=== PATIENT | male | born 1960 | race Caucasian/White ===

== ENCOUNTER → 2018-04-07 | Outpatient (CLI) | payer OTHER ==
[~2018-04-07] MED LIST: LOSA50TA6 PO; RIVA10TA PO
== END | disposition home or self-care (01) ==
LOC: RAD 17:33
PROVIDERS: ATTEND Family Medicine
DX: I82.411 Acute embolism and thrombosis of right femoral vein (principal); I82.431 Acute embolism and thrombosis of right popliteal vein; I82.441 Acute embolism and thrombosis of right tibial vein; I10 Essential (primary) hypertension

== ENCOUNTER 2018-04-26 18:08 | Emergency (ER) | payer OTHER ==
[~2018-04-26] VITALS: Ht 188 cm; Wt 102.8 kg
[2018-04-26 19:36] LABS: BASOPHILS # (AUTO) 0.08 x10^3/uL (0-0.1); BASOPHILS % (AUTO) 1 % (0-1); EOSINOPHILS # (AUTO) 0.21 x10^3/uL (0-0.4); EOSINOPHILS % (AUTO) 2 % (1-7); LYMPHOCYTES # (AUTO) 1.99 x10^3/uL (1-3.4); LYMPHOCYTES % (AUTO) 21 % (22-44); MD NO; MEAN CORPUSCULAR HEMOGLOBIN 31.2 pg (27.5-34.5); MEAN CORPUSCULAR HGB CONC 34.3 g/dL (33.2-36.2); MEAN CORPUSCULAR VOLUME 91.1 fL (81-97); MEAN PLATELET VOLUME 6.8 fL (7.4-10.4); MONOCYTES # (AUTO) 0.77 x10^3/uL (0.2-0.8); MONOCYTES % (AUTO) 8 % (2-9); NEUTROPHILS # (AUTO) 6.45 x10^3/uL (1.8-6.8); NEUTROPHILS % (AUTO) 68 % (42-75); PLATELET COUNT 243 x10^3/uL (130-400); RED BLOOD COUNT 4.71 x10^6/uL (4.38-5.82); RED CELL DISTRIBUTION WIDTH 13.5 % (9.4-14.8)
[2018-04-26 19:41] LABS: INTERNATIONAL NORMALIZED RATIO 1.01 (0.93-1.1); PROTHROMBIN TIME 10.5 Seconds (9.6-11.5)
[2018-04-26 19:44] LABS: ALBUMIN 3.4 g/dL (3.4-5.0); ANION GAP 6 mmol/L (5-15); CALCIUM 8.6 mg/dL (8.5-10.1); CHLORIDE 106 mmol/L (98-107); CREATININE 1.11 mg/dL (0.7-1.3)
[2018-04-26 19:47] LABS: TROPONIN I < 0.015 ng/mL (0.000-0.045)
[2018-04-26] MEDS ORDERED: LOSA50TA6 PO (19:52)
[2018-04-26] MEDS ORDERED: RIVA10TA PO (19:52)
[2018-04-26 20:24] VITALS: BP 124/88
== END 2018-04-26 21:10 | disposition home or self-care (01) ==
LOC: ED 20:45
DX: I82.401 Acute embolism and thrombosis of unspecified deep veins of right lower extremity (principal); I26.99 Other pulmonary embolism without acute cor pulmonale; I10 Essential (primary) hypertension
CPT/HCPCS: 36415; 80048; 82040; 83880; 84484; 85025; 85610; 85730; 93005; 99285

== ENCOUNTER → 2018-04-26 | Outpatient (CLI) | payer OTHER ==
[~2018-04-26] MED LIST changes: +OMNIPAQUE 350 MG/ML, 100ML BOTTLE ONE
[2018-04-26 16:11] LABS: CREATININE 1.11 mg/dL (0.7-1.3)
== END | disposition home or self-care (01) ==
LOC: RAD 15:18
PROVIDERS: ATTEND Family Medicine
DX: I26.99 Other pulmonary embolism without acute cor pulmonale (principal); R06.02 Shortness of breath
CPT/HCPCS: 36415; 71275; 82565; Q9967

== ENCOUNTER 2018-11-21 07:12 | Inpatient (IN) | payer OTHER ==
[~2018-11-21] VITALS: Ht 188 cm; Wt 111.8 kg
[~2018-11-21 07:12] MED LIST changes: +LOSA50TA14 PO; -LOSA50TA6 PO; -OMNIPAQUE 350 MG/ML, 100ML BOTTLE ONE; -RIVA10TA PO; +RIVA10TA2 PO
--- NOTE | 2018-11-21 07:22 | NUR ---
PT BIB EMS. FALL R/T ICE. PT DENIES ANY SOB, DUIZZINESS, CHEST PAIN. DENIES LIOC OR MIDLINE SPINE PAIN. DENIES HEAD TRAUMA. LEFT LEG SHORTENED AND EXTERNALLY ROTATED. NEROVASCULAR INTACT DISTYAL. RESTING ON GURNEY. CALL LIGHT IN REACH. SPO2 AND NIBP MONITORS IN PLACE.
[2018-11-21] MEDS ORDERED: SODIUM CHLORIDE FLUSH 10ML SYR IVF ONE (07:30)
[2018-11-21] MEDS ORDERED: MORPHINE SULFATE 4 MG/ML, 1ML ONE ×2 (07:50→08:14)
[2018-11-21] MEDS: MORPHINE SULFATE 4 MG/ML, 1ML IVPush PRN ×2 (07:52→08:17)
[2018-11-21 07:57] LABS: BASOPHILS # (AUTO) 0.05 x10^3/uL (0-0.1); BASOPHILS % (AUTO) 1 % (0-1); EOSINOPHILS # (AUTO) 0.31 x10^3/uL (0-0.4); EOSINOPHILS % (AUTO) 5 % (1-7); LYMPHOCYTES # (AUTO) 1.69 x10^3/uL (1-3.4); LYMPHOCYTES % (AUTO) 27 % (22-44); MD NO; MEAN CORPUSCULAR HEMOGLOBIN 32.1 pg (27.5-34.5); MEAN CORPUSCULAR HGB CONC 34.3 g/dL (33.2-36.2); MEAN CORPUSCULAR VOLUME 93.8 fL (81-97); MEAN PLATELET VOLUME 6.6 fL (7.4-10.4); MONOCYTES # (AUTO) 0.53 x10^3/uL (0.2-0.8); MONOCYTES % (AUTO) 9 % (2-9); NEUTROPHILS # (AUTO) 3.69 x10^3/uL (1.8-6.8); NEUTROPHILS % (AUTO) 59 % (42-75); PLATELET COUNT 180 x10^3/uL (130-400); RED BLOOD COUNT 4.64 x10^6/uL (4.38-5.82); RED CELL DISTRIBUTION WIDTH 12.3 % (9.4-14.8)
[2018-11-21 08:05] LABS: ALANINE AMINOTRANSFERASE 21 U/L (12-78); ALBUMIN 3.3 g/dL (3.4-5.0); ANION GAP 7 mmol/L (5-15); CALCIUM 8.3 mg/dL (8.5-10.1); CHLORIDE 110 mmol/L (98-107); CREATININE 1.26 mg/dL (0.7-1.3)
[2018-11-21 08:07] LABS: ALKALINE PHOSPHATASE 65 U/L (45-117); BILIRUBIN,TOTAL 0.6 mg/dL (0.2-1.0); TOTAL PROTEIN 6.7 g/dL (6.4-8.2)
[2018-11-21 08:20] VITALS: BP 148/96
[2018-11-21 08:27] LABS: INTERNATIONAL NORMALIZED RATIO 0.99 (0.93-1.1); PROTHROMBIN TIME 10.5 Seconds (9.6-11.5)
--- NOTE | 2018-11-21 08:39 | NUR ---
REPORT TO DOUGLAS VICTOR
[2018-11-21] MEDS: LOSARTAN 50MG TABLET PO SCH (09:00)
[2018-11-21] MEDS ORDERED: morphine SULFATE 10 MG/ML, 1ML IVPush PRN (09:00)
[2018-11-21] MEDS ORDERED: ENALAPRILAT 1.25 MG/ML, 2ML IVPush PRN (09:00)
[2018-11-21] MEDS ORDERED: BISACODYL 10 MG SUPP PR PRN (09:00)
[2018-11-21] MEDS ORDERED: ONDANSETRON 2MG/ML, 2ML IVPush PRN (09:00)
[2018-11-21] MEDS: NS + 20MEQ KCL 1,000 ML IV SCH ×2 (09:56→23:11)
[2018-11-21] MEDS ORDERED: MIDAZOLAM 1 MG/ML, 2ML ONE (11:40)
[2018-11-21] MEDS ORDERED: FENTANYL PF 250 MCG/5ML ONE (11:40)
[2018-11-21] MEDS ORDERED: PROPOFOL 10 MG/ML, 20ML ONE (11:41)
[2018-11-21] MEDS ORDERED: ROCURONIUM 10MG/ML,5ML ONE (11:41)
[2018-11-21] MEDS ORDERED: LIDOCAINE-MPF 2% ,5ML ONE (11:41)
[2018-11-21] MEDS ORDERED: PHENYLEPHRINE 10 MG/ML ONE (11:42)
[2018-11-21] MEDS ORDERED: WATER-INJECTION,STERILE 10 ML IV ONE (11:43)
[2018-11-21] MEDS ORDERED: CEFAZOLIN 1,000 MG ONE ×2 (11:43)
[2018-11-21] MEDS ORDERED: DEXAMETHASONE 4 MG/ML, 1ML ONE ×2 (11:58)
[2018-11-21] MEDS ORDERED: ONDANSETRON 2MG/ML, 2ML ONE ×2 (11:58)
[2018-11-21] MEDS ORDERED: NEOSPORIN OINT, 15GM ONE (12:45)
[2018-11-21] MEDS ORDERED: FENTANYL PF 100 MCG/2ML ONE (12:49)
[2018-11-21] MEDS ORDERED: ACETAMINOPHEN 325 MG TABLET PO PRN (13:00)
[2018-11-21] MEDS ORDERED: PROMETHAZINE 25 MG/ML, 1ML IV PRN (13:00)
[2018-11-21] MEDS ORDERED: MEPERIDINE/PF 25MG/0.5ML IVPush PRN (13:00)
[2018-11-21] MEDS ORDERED: hydrALAzine 20 MG/ML, 1ML IV PRN (13:00)
[2018-11-21] MEDS ORDERED: FENTANYL PF 100 MCG/2ML IV PRN (13:00)
[2018-11-21] MEDS ORDERED: HALOPERIDOL 5 MG/ML IV PRN (13:00)
[2018-11-21] MEDS ORDERED: GLYCOPYRROLATE 0.2MG/1ML, 5ML ONE (13:07)
[2018-11-21] MEDS ORDERED: NEOSTIGMINE 1 MG/ML, 10ML ONE (13:07)
[2018-11-21] MEDS: CEFAZOLIN PMX 1GM/50ML 50 ML IV SCH ×2 (13:30→22:39)
[2018-11-21] MEDS: ENOXAPARIN 40 MG/0.4 ML SQ SCH ×2 (13:30→22:39)
[2018-11-21] MEDS ORDERED: HYDROmorphone 1 MG/ML, 1ML ONE (13:32)
[2018-11-21] MEDS ORDERED: OXYcodone 5 MG/5 ML ORAL.SOL UDC ONE (13:33)
[2018-11-21] MEDS: OXYcodone 5 MG/5 ML ORAL.SOL UDC PO PRN ×2 (13:35→16:48)
[2018-11-21] MEDS: HYDROmorphone 2 MG/ML, 1ML IVPush PRN ×2 (13:36→13:45)
[2018-11-21] MEDS ORDERED: KETOROLAC 30 MG/1 ML ONE (13:37)
[2018-11-21] MEDS ORDERED: KETOROLAC 30 MG/1 ML IVPush ONE (14:00)
[2018-11-21] MEDS ORDERED: MEPERIDINE/PF 25MG/ML,1ML ONE (14:00)
[2018-11-21 14:25] VITALS: BP 119/68
[2018-11-21 18:41] VITALS: BP 99/64
[2018-11-22 00:02] VITALS: BP 107/62
[2018-11-22 05:21] LABS: ANION GAP 5 mmol/L (5-15); CALCIUM 7.3 mg/dL (8.5-10.1); CHLORIDE 106 mmol/L (98-107); CREATININE 1.26 mg/dL (0.7-1.3)
[2018-11-22 05:25] LABS: BASOPHILS # (AUTO) 0.02 x10^3/uL (0-0.1); BASOPHILS % (AUTO) 0 % (0-1); EOSINOPHILS % (AUTO) 0 % (1-7); LYMPHOCYTES # (AUTO) 0.89 x10^3/uL (1-3.4); LYMPHOCYTES % (AUTO) 9 % (22-44); MD NO; MEAN CORPUSCULAR HGB CONC 34.9 g/dL (33.2-36.2); MEAN CORPUSCULAR VOLUME 94.5 fL (81-97); MEAN PLATELET VOLUME 6.9 fL (7.4-10.4); MONOCYTES # (AUTO) 0.81 x10^3/uL (0.2-0.8); MONOCYTES % (AUTO) 9 % (2-9); NEUTROPHILS # (AUTO) 7.69 x10^3/uL (1.8-6.8); NEUTROPHILS % (AUTO) 82 % (42-75); PLATELET COUNT 159 x10^3/uL (130-400); RED BLOOD COUNT 3.25 x10^6/uL (4.38-5.82); RED CELL DISTRIBUTION WIDTH 12.2 % (9.4-14.8)
[2018-11-22] MEDS: CEFAZOLIN PMX 1GM/50ML 50 ML IV SCH (06:31)
[2018-11-22 07:40] VITALS: BP 105/68
[2018-11-22] MEDS: LOSARTAN 50MG TABLET PO SCH (09:00)
[2018-11-22] MEDS: OXYcodone IR 5MG TABLET PO PRN ×3 (09:14→21:04)
[2018-11-22] MEDS: NS + 20MEQ KCL 1,000 ML IV SCH ×2 (10:39→14:37)
[2018-11-22 13:23] VITALS: BP 110/65
[2018-11-22 18:46] VITALS: BP 115/62
[2018-11-22] MEDS: DOCUSATE 100 MG CAPSULE PO PRN (21:04)
[2018-11-22] MEDS: ACETAMINOPHEN 325 MG TABLET PO PRN (21:04)
[2018-11-23] MEDS: ACETAMINOPHEN 325 MG TABLET PO PRN ×4 (01:04→20:06)
[2018-11-23] MEDS: OXYcodone IR 5MG TABLET PO PRN ×4 (01:04→20:06)
[2018-11-23 01:09] VITALS: BP 117/67
[2018-11-23] MEDS: NS + 20MEQ KCL 1,000 ML IV SCH ×2 (04:46→17:32)
[2018-11-23 07:13] VITALS: BP 107/63
[2018-11-23] MEDS: LOSARTAN 50MG TABLET PO SCH (09:00)
[2018-11-23] MEDS: DOCUSATE 100 MG CAPSULE PO PRN ×2 (09:13→20:06)
[2018-11-23] MEDS: POLYETHYLENE GLYCOL 17 GM PACKET PO PRN (09:13)
[2018-11-23 13:04] VITALS: BP 131/77
[2018-11-23] MEDS: ENOXAPARIN 40 MG/0.4 ML SQ SCH (15:51)
[2018-11-23 18:32] VITALS: BP 137/94
[2018-11-23 20:27] LABS: BASOPHILS # (AUTO) 0.03 x10^3/uL (0-0.1); BASOPHILS % (AUTO) 0 % (0-1); EOSINOPHILS # (AUTO) 0.11 x10^3/uL (0-0.4); EOSINOPHILS % (AUTO) 2 % (1-7); LYMPHOCYTES # (AUTO) 1.15 x10^3/uL (1-3.4); LYMPHOCYTES % (AUTO) 18 % (22-44); MD NO; MEAN CORPUSCULAR HGB CONC 35.1 g/dL (33.2-36.2); MEAN CORPUSCULAR VOLUME 93.9 fL (81-97); MEAN PLATELET VOLUME 6.8 fL (7.4-10.4); MONOCYTES # (AUTO) 0.74 x10^3/uL (0.2-0.8); MONOCYTES % (AUTO) 11 % (2-9); NEUTROPHILS # (AUTO) 4.52 x10^3/uL (1.8-6.8); NEUTROPHILS % (AUTO) 69 % (42-75); PLATELET COUNT 134 x10^3/uL (130-400); RED BLOOD COUNT 2.63 x10^6/uL (4.38-5.82); RED CELL DISTRIBUTION WIDTH 12.4 % (9.4-14.8)
[2018-11-23 21:00] LABS: MICROSCOPIC AUTO
[2018-11-23 21:09] LABS: CULTURE INDICATED? YES
[2018-11-23] MEDS: POLYTRIM OPHTH 10ML RIGHTEYE SCH (23:27)
[2018-11-24 01:48] VITALS: BP 111/69
[2018-11-24] MEDS: NS + 20MEQ KCL 1,000 ML IV SCH ×2 (06:02→21:48)
[2018-11-24] MEDS: POLYTRIM OPHTH 10ML RIGHTEYE SCH ×4 (06:02→21:00)
[2018-11-24] MEDS: OXYcodone IR 5MG TABLET PO PRN ×5 (06:09→23:39)
[2018-11-24] MEDS: ACETAMINOPHEN 325 MG TABLET PO PRN ×3 (06:09→14:31)
[2018-11-24 06:54] VITALS: BP 117/71
[2018-11-24] MEDS: LOSARTAN 50MG TABLET PO SCH (09:00)
[2018-11-24] MEDS: DOCUSATE 100 MG CAPSULE PO PRN (09:29)
[2018-11-24] MEDS: POLYETHYLENE GLYCOL 17 GM PACKET PO PRN (09:29)
[2018-11-24] MEDS: CEFTRIAXONE PMX 2GM/50ML 50 ML IV SCH (10:08)
[2018-11-24 14:21] VITALS: BP 123/79
[2018-11-24] MEDS: ENOXAPARIN 40 MG/0.4 ML SQ SCH (15:41)
[2018-11-24] MEDS: TOBRAMYCIN OP SCH ×2 (18:09→21:50)
[2018-11-24] MEDS: DEXAMETH OP SCH ×2 (18:09→21:50)
[2018-11-24 18:40] VITALS: BP 113/75
[2018-11-25 00:07] VITALS: BP 122/68
[2018-11-25] MEDS: OXYcodone IR 5MG TABLET PO PRN ×3 (04:10→16:35)
[2018-11-25] MEDS: POLYTRIM OPHTH 10ML RIGHTEYE SCH ×3 (06:00→16:34)
[2018-11-25 07:45] VITALS: BP 117/70
[2018-11-25] MEDS: TOBRAMYCIN OP SCH ×2 (09:26→16:34)
[2018-11-25] MEDS: DEXAMETH OP SCH ×2 (09:26→16:34)
[2018-11-25] MEDS: LOSARTAN 50MG TABLET PO SCH (09:28)
[2018-11-25] MEDS: ACETAMINOPHEN 325 MG TABLET PO PRN (09:33)
[2018-11-25] MEDS: CEFTRIAXONE PMX 2GM/50ML 50 ML IV SCH (10:08)
[2018-11-25] MEDS: NS + 20MEQ KCL 1,000 ML IV SCH (10:40)
[2018-11-25] MEDS ORDERED: POLY17PO5 PO (11:47)
[2018-11-25] MEDS ORDERED: OXYC5TAB3 PO (11:47)
[2018-11-25] MEDS ORDERED: TOBR5DRO14 OP (11:47)
[2018-11-25] MEDS ORDERED: ONDA4TAB13 SL ×2 (11:47→14:01)
[2018-11-25] MEDS ORDERED: ENOX40SY4 SQ ×2 (11:48→11:58)
[2018-11-25] MEDS ORDERED: CEFD300C37 PO (11:54)
[2018-11-25] MEDS ORDERED: TRAM50TA2 PO (11:58)
[2018-11-25 12:44] VITALS: BP 117/72
[2018-11-25] MEDS: ENOXAPARIN 40 MG/0.4 ML SQ SCH (16:34)
== END 2018-11-25 18:15 | DRG 481 ==
LOC: ED 07:51 → EDIP 08:16 → 4NOR 08:53
PROVIDERS: ADMIT Hospitalist; ATTEND Hospitalist
PROC: 0QS706Z Reposition Left Upper Femur with Intramedullary Internal Fixation Device, Open Approach (ICD-10-PCS; principal; 2018-11-21 12:00)
PROC: 0T9B70Z Drainage of Bladder with Drainage Device, Via Natural or Artificial Opening (ICD-10-PCS; 2018-11-23)
DX: S72.22XA Displaced subtrochanteric fracture of left femur, initial encounter for closed fracture (principal); E44.1 Mild protein-calorie malnutrition; N39.0 Urinary tract infection, site not specified; S72.122A Displaced fracture of lesser trochanter of left femur, initial encounter for closed fracture; S72.8X2A Other fracture of left femur, initial encounter for closed fracture; W01.0XXA Fall on same level from slipping, tripping and stumbling without subsequent striking against object, initial encounter; H10.9 Unspecified conjunctivitis; I11.9 Hypertensive heart disease without heart failure; M19.90 Unspecified osteoarthritis, unspecified site; R73.9 Hyperglycemia, unspecified; Y93.89 Activity, other specified; Y99.8 Other external cause status; Z86.711 Personal history of pulmonary embolism; Z86.718 Personal history of other venous thrombosis and embolism; Z68.31 Body mass index [BMI] 31.0-31.9, adult; Y92.481 Parking lot as the place of occurrence of the external cause
CPT/HCPCS: 36415; 73501; 73502; 76000; 84145; 99285; J3490; 71045; 80048; 80053; 80307; 81001; 83605; 85014; 85018; 85025; 85610; 85730; 87040; 87086; 93005; 96374; C1713; G0378; J0690; J0696; J1100; J1170; J1650; J1885; J2175; J2250; J2405; J2704; J2710; J3010; J3480; J2270; J2370

== ENCOUNTER → 2020-04-27 | Outpatient (CLI) | payer OTHER ==
[~2020-04-27] MED LIST changes: +CEFD300C37 PO; +ENOX40SY4 SQ; +ONDA4TAB13 SL; +OXYC5TAB3 PO; +POLY17PO5 PO; +TOBR5DRO14 OP; +TRAM50TA2 PO
== END | disposition home or self-care (01) ==
LOC: STAR 08:08
PROVIDERS: ATTEND Surgery
DX: Z01.818 Encounter for other preprocedural examination (principal); K40.90 Unilateral inguinal hernia, without obstruction or gangrene, not specified as recurrent; I10 Essential (primary) hypertension
CPT/HCPCS: 71046; 93005

== ENCOUNTER 2020-05-02 06:47 | Day surgery (SDC) | payer OTHER ==
[2020-04-27 09:20] LABS: BASOPHILS # (AUTO) 0.05 x10^3/uL (0-0.1); BASOPHILS % (AUTO) 1 % (0-1); EOSINOPHILS # (AUTO) 0.28 x10^3/uL (0-0.4); EOSINOPHILS % (AUTO) 4 % (1-7); LYMPHOCYTES # (AUTO) 2.89 x10^3/uL (1-3.4); LYMPHOCYTES % (AUTO) 39 % (22-44); MD NO; MEAN CORPUSCULAR HEMOGLOBIN 30.7 pg (27.5-34.5); MEAN CORPUSCULAR HGB CONC 33.1 g/dL (33.2-36.2); MEAN CORPUSCULAR VOLUME 92.8 fL (81-97); MEAN PLATELET VOLUME 6.2 fL (7.4-10.4); MONOCYTES # (AUTO) 0.65 x10^3/uL (0.2-0.8); MONOCYTES % (AUTO) 9 % (2-9); NEUTROPHILS # (AUTO) 3.65 x10^3/uL (1.8-6.8); NEUTROPHILS % (AUTO) 49 % (42-75); PLATELET COUNT 266 x10^3/uL (130-400); RED BLOOD COUNT 4.37 x10^6/uL (4.38-5.82); RED CELL DISTRIBUTION WIDTH 12.6 % (9.4-14.8)
[2020-04-27 09:55] LABS: ALBUMIN 3.3 g/dL (3.4-5.0); CALCIUM 8.4 mg/dL (8.5-10.1)
[2020-04-27 10:05] LABS: ALANINE AMINOTRANSFERASE 26 U/L (12-78); ALKALINE PHOSPHATASE 65 U/L (45-117); ANION GAP 6 mmol/L (5-15); BILIRUBIN,TOTAL 0.4 mg/dL (0.2-1.0); CHLORIDE 108 mmol/L (98-107); CREATININE 1.09 mg/dL (0.7-1.3); TOTAL PROTEIN 7.2 g/dL (6.4-8.2)
[~2020-05-02] VITALS: Ht 188 cm; Wt 108.5 kg
[2020-05-02] MEDS ORDERED: FENTANYL PF 100 MCG/2ML ONE (07:16)
[2020-05-02] MEDS ORDERED: ROCURONIUM 10MG/ML,5ML ONE (07:16)
[2020-05-02] MEDS ORDERED: MIDAZOLAM 1 MG/ML, 2ML ONE (07:16)
[2020-05-02] MEDS ORDERED: ONDANSETRON 2MG/ML, 2ML ONE (07:18)
[2020-05-02] MEDS ORDERED: DEXAMETHASONE 4 MG/ML, 1ML ONE ×2 (07:18)
[2020-05-02] MEDS ORDERED: LIDOCAINE-MPF 2% ,5ML ONE (07:18)
[2020-05-02] MEDS ORDERED: PROPOFOL 10 MG/ML, 20ML ONE (07:18)
[2020-05-02 07:34] VITALS: BP 120/82
[2020-05-02] MEDS ORDERED: LACTATED RINGERS 1,000 ML IV SCH (07:36)
[2020-05-02] MEDS ORDERED: ACETAMINOPHEN 500 MG TABLET PO ONE (08:00)
[2020-05-02] MEDS ORDERED: GABAPENTIN 300 MG CAPSULE PO ONE (08:00)
[2020-05-02] MEDS ORDERED: CHLORHEXIDINE 15 ML UDC MM ONE (08:00)
[2020-05-02] MEDS ORDERED: BUPIVACAINE/PF 0.5% ONE (08:47)
[2020-05-02] MEDS ORDERED: DIAZEPAM 5 MG/ML, 2ML IVPush PRN (09:00)
[2020-05-02] MEDS ORDERED: MEPERIDINE/PF 25MG/0.5ML IVPush PRN (09:00)
[2020-05-02] MEDS ORDERED: FENTANYL PF 100 MCG/2ML IV PRN (09:00)
[2020-05-02] MEDS ORDERED: HYDROmorphone 1 MG/ML, 1ML INJ IVPush PRN (09:00)
[2020-05-02] MEDS ORDERED: ONDANSETRON 2MG/ML, 2ML IVPush PRN (09:00)
[2020-05-02] MEDS ORDERED: PROMETHAZINE 25 MG/ML, 1ML IVPush PRN (09:00)
[2020-05-02] MEDS ORDERED: hydrALAzine 20 MG/ML, 1ML IV PRN (09:00)
[2020-05-02] MEDS ORDERED: OXYcodone 5 MG/5 ML ORAL.SOL UDC PO PRN (09:00)
[2020-05-02] MEDS ORDERED: BUPIVACAINE/PF 0.5% INFIL ONE (09:06)
== END 2020-05-02 13:45 | disposition home or self-care (01) ==
LOC: OUT 06:47
PROVIDERS: ATTEND Surgery
DX: K40.90 Unilateral inguinal hernia, without obstruction or gangrene, not specified as recurrent (principal); I10 Essential (primary) hypertension; Z79.899 Other long term (current) drug therapy; Z98.890 Other specified postprocedural states; Z72.89 Other problems related to lifestyle; Z98.52 Vasectomy status; Z86.711 Personal history of pulmonary embolism; Z80.1 Family history of malignant neoplasm of trachea, bronchus and lung
CPT/HCPCS: 49650; C1781; J1100; J2250; J2405; J2704; J3010; J7120; S2900; 36415; 80053; 85025; 87635